=== PATIENT | female | born 1960 | race Caucasian/White ===

== ENCOUNTER → 2019-01-29 | Outpatient (REF) | payer MEDICARE ==
[~2019-01-29] MED LIST: ATORVASTATIN CA40 MG PO; FISH OIL1000 MG PO; KEPPRA500 M2 PO; LAMICTAL150 M1 PO; LEVETIRACETAM500 M1 PO; LEVOTHYROXIN88 MC1 PO; MULTI VIT PO; TRAZODONE50 MG PO
== END | disposition home or self-care (01) ==
LOC: MAMMO 09:43
PROVIDERS: ATTEND Nurse Practitioner Family
DX: Z12.31 Encounter for screening mammogram for malignant neoplasm of breast (principal)